=== PATIENT | male | born 1960 | race Caucasian/White ===

== ENCOUNTER 2018-05-18 08:00 | Observation (INO) | payer MEDICARE, OTHER ==
[2018-05-18] MEDS ORDERED: LACTATED RINGERS 1,000 ML IV ONE (08:14)
[2018-05-18] MEDS ORDERED: FAMOTIDINE 20 MG/2 ML VIAL ONE ×2 (08:20→08:48)
[2018-05-18] MEDS ORDERED: LEVALBUTEROL HCL 1.25 MG/3 ML VIAL.NEB IH ONE ×2 (08:20→08:48)
[2018-05-18] MEDS ORDERED: ceFAZolin SODIUM 1 GM VIAL ONE (08:48)
[2018-05-18] MEDS ORDERED: SUGAMMADEX SODIUM 200 MG/2 ML VIAL IV ONE (08:48)
[2018-05-18] MEDS ORDERED: fentaNYL CITRATE/PF 100 MCG/2 ML INJ. ONE ×2 (08:48→13:43)
[2018-05-18] MEDS ORDERED: MIDAZOLAM HCL 2 MG/2 ML VIAL ONE (08:48)
[2018-05-18] MEDS ORDERED: ROCURONIUM BROMIDE 10 MG/ML 5ML VIAL ONE (08:48)
[2018-05-18] MEDS ORDERED: DEXAMETHASONE SODIUM PHOSPHATE 10 MG/ML VIAL ONE (08:48)
[2018-05-18] MEDS ORDERED: ePHEDrine SULFATE 50 MG/1 ML IVP ONE (08:48)
[2018-05-18] MEDS ORDERED: ONDANSETRON HCL/PF 4 MG/ 2ML VIAL ONE (08:48)
[2018-05-18] MEDS ORDERED: SEVOFLURANE 250 ML LIQUID IH ONE (08:48)
[2018-05-18] MEDS ORDERED: FENTANYL CITRATE/PF 250 MCG/5 ML INJ. ONE (08:48)
[2018-05-18] MEDS ORDERED: PROPOFOL 200 MG/20 ML VIAL IV ONE (08:48)
[2018-05-18] MEDS ORDERED: LACTATED RINGERS 1,000 ML IV.SOLN IV ONE ×2 (08:48)
[2018-05-18] MEDS ORDERED: LIDOCAINE HCL 2% PF 100MG/5ML VIAL IJ ONE (08:48)
[2018-05-18] MEDS ORDERED: PHENYLEPHRINE HCL 10 MG/1 ML ONE (08:48)
[2018-05-18] MEDS ORDERED: oxyCODONE/ACETAMINOPHEN 5/325 TABLET PO PRN ×2 (14:29)
[2018-05-18] MEDS ORDERED: ONDANSETRON HCL/PF 4 MG/ 2ML VIAL IVP PRN (14:29)
[2018-05-18] MEDS ORDERED: IPRATROPIUM/ALBUTEROL SULFATE 3 ML AMPUL.NEB NEB PRN (14:29)
[2018-05-18] MEDS ORDERED: fentaNYL CITRATE/PF 100 MCG/2 ML INJ. IVP PRN (14:29)
--- NOTE | 2018-05-18 14:48 | History and Physical Report ---
History of Present Illnes - History of Present Illness Reason for Visit: Status post C3/4 and C4/5 total disc replacement History of Present Illness: This is a 58 year old male with chronic neck pain. Was noted to have severe stenosis of C4/5, 5/6 and underwent TDR at those levels today. He had failed conservative treatment. 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: CVA (Hemorrhagic stroke with resultant hemiplegia 2013) Gastrointestinal: denies: Constipation Heme/Onc: denies: Anemia NOS Rheumatologic: Gout Endocrine: obesity - Past Surgical History Past Surgical History: Other (Back surgery, pacemaker 2013) - Past Social History Smoke: 2 packs per day Alcohol: Occassional Drugs: None Lives: With Family Domestic Violence: Negative - Health Maintenance Health Maintenance: Cholesterol Influenza Vaccine: Current for this Influenza Season Pneumonia Vaccine: Yes Resuscitation Status: Resusciation Status Resuscitation Status Full Code - Unable to Obtain History Unable to Obtain: No Review of Systems - Review of Systems Constitutional: negative: Fever, Chills Eyes: negative: pain ENT: negative: Ear Pain Respiratory: negative: Cough Cardiovascular: negative: Chest Pain, Palpitations Gastrointestinal: negative: Nausea, Vomiting Genitourinary: negative: Dysuria Musculoskeletal: Neck Pain (anteriorly) Skin: negative: Rash Neurological: Other (Some sensation it returning to hands) - Medications/Allergies Allergies/Adverse Reactions: Allergies Allergy/AdvReac Type Severity Reaction Status Date / Time legumes Allergy Unknown Verified 05/18/18 15:10 erythromycin base Allergy Verified 05/18/18 14:28 [From Erythrocin] levetiracetam Allergy Verified 05/18/18 14:28 Home Medications: Home Medications Allopurinol [Zyloprim] 50 mg PO QD 05/18/18 Aspirin 325 mg PO D 05/18/18 Cyclobenzaprine HCl 10 mg PO TID 05/18/18 Garlic 1 each PO D 05/18/18 Multivitamin [One Daily Essential] 1 each PO D 05/18/18 Naproxen 500 mg PO D 05/18/18 Current Inpatient Medications: Current Inpatient Medications Albuterol/Ipratropium (Duoneb) 3 ml NEB Q4 PRN PRN Reason: Wheezing Allopurinol (Zyloprim) 50 mg PO DAILY [facility] Aspirin (Aspirin) 325 mg PO DAILY [facility] Cefazolin Sodium/Dextrose (Ancef 1 Gm/50 Ml-Dextrose) 1 gm IV Q8H [facility] Stop: 05/19/18 04:41 Cyclobenzaprine HCl (Flexeril) 10 mg PO TID [facility] Docusate Sodium (Colace) 100 mg PO BID [facility] Stop: 05/20/18 09:01 Fentanyl Citrate (Sublimaze) 100 mcg IVP Q2H PRN PRN Reason: For Severe Pain 8-10 Stop: 05/19/18 14:28 Heparin Sodium (Porcine) (Heparin) 5,000 unit SQ Q12 [facility] Multivitamins (Tab-A-Aniya) 1 each PO DAILY [facility] Naproxen (Naprosyn) 500 mg PO DAILY [facility] Nicotine (Habitrol 21mg) 1 each TD DAILY [facility] Ondansetron HCl (Zofran) 4 mg IVP Q6H PRN PRN Reason: Nausea / Vomiting Stop: 05/22/18 14:28 Oxycodone/Acetaminophen (Percocet 5-325 Mg Tablet) 1 each PO Q4 PRN PRN Reason: For pain 1-4 out of 10 Oxycodone/Acetaminophen (Percocet 5-325 Mg Tablet) 2 each PO Q4 PRN PRN Reason: Moderate pain 5-7 Exam - Exam Vital Signs: Vital Signs (72 hours) 05/18/18 14:20 Temperature 96.3 F L Pulse Rate [ 81 Pulse ox] Respiratory 20 Rate Blood Pressure 129/69 [Left Arm] O2 Sat by Pulse 94 Oximetry General: Alert, Oriented to Person, Oriented to Place, Oriented to Time HEENT: Atraumatic, PERRLA, Edentulous Neck: Other (Wound is dry). No: Normal Range of Motion Lungs: Clear to auscultation, Prolonged Expiration, Decreased Air Movement. No: Respiratory Distress Cardiovascular: Regular rate, Normal S1, Normal S2 Murmur: No: Systolic Murmur Murmur Location: [place] Abdomen: Normal bowel sounds, Soft, Other (Obese) Genitourinary: No: Other Male Genitourinary: No: Other Female Genitourinary: No: Other Integumentary: Normal, [place], Warm Extremities: No clubbing, No cyanosis Neurological: Normal speech Psych/Mental Status: Mental status NL Assessment/Plan - Assessment/Plan (1) Neural foraminal stenosis of cervical spine Status: Acute Current Visit: Yes Assessment: s/p TDR C4/5, 5/6 (2) COPD (chronic obstructive pulmonary disease) Status: Acute Current Visit: Yes Qualifiers: COPD type: unspecified COPD Qualified Code(s): J44.9 - Chronic obstructive pulmonary disease, unspecified (3) Smoker Status: Acute Current Visit: Yes Assessment: Placed patch for 21 mg of nicotine (4) History of intracranial hemorrhage Status: Acute Current Visit: Yes Assessment: Observe for any neurologic events (5) Hyperlipidemia Status: Acute Current Visit: Yes (6) CAD (coronary artery disease) Status: Acute Current Visit: Yes Qualifiers: Coronary Disease-Associated Artery/Lesion type: [place] artery Tribe vs. transplanted heart: [place] heart Associated angina: without angina Qualified Code(s): I25.10 - Atherosclerotic heart disease of [place] coronary artery without angina pectoris Assessment: Continue Aspirin daily VTE Assessment - RISK FACTOR SCORE VTE RISK FACTOR SCORES: AGE 40-60 YEARS, ANTICIPATED BED CONFINEMENT OR IMMOBILIZATION > 24 HOURS (On Heparin)
[2018-05-18] MEDS: NICOTINE 21mg 1 EACH PATCH.TD24 TD SCH (14:55)
[2018-05-18] MEDS: POTASSIUM CHLOR 20 MEQ D51/2NS 1,000 ML IV SCH (15:14)
[2018-05-18 15:34] VITALS: BMI 34.0
[2018-05-18] MEDS: CYCLOBENZAPRINE HCL 10 MG TABLET PO SCH (17:36)
[2018-05-18] MEDS: DOCUSATE SODIUM 100 MG CAPSULE PO SCH (20:23)
[2018-05-18] MEDS: HEPARIN SODIUM 5000 UNIT/1 ML SQ SCH (20:23)
[2018-05-18] MEDS: CEFAZOLIN SODIUM/DEXTROSE,ISO 1 GM/50 ML PIGGYBACK IV SCH (20:24)
[2018-05-19] MEDS: POTASSIUM CHLOR 20 MEQ D51/2NS 1,000 ML IV SCH (03:36)
[2018-05-19] MEDS: CEFAZOLIN SODIUM/DEXTROSE,ISO 1 GM/50 ML PIGGYBACK IV SCH (04:33)
[2018-05-19 07:38] LABS: BASOPHILS % 0.7 (0.0-1.5); EOSINOPHILS % 0.9 % (0.0-6.8); MEAN CORPUSCULAR HEMOGLOBIN 32.8 pg (28.0-34.0); MONOCYTES % 5.8 % (0.0-11.0); NEUTROPHILS # 11.8 # k/uL (1.4-7.7)
[2018-05-19] MEDS ORDERED: NAPROXEN 250 MG TABLET PO SCH (09:00)
[2018-05-19] MEDS ORDERED: ALLOPURINOL 100 MG TABLET PO SCH (09:00)
[2018-05-19] MEDS ORDERED: MULTIVITAMIN 1 EACH TABLET PO SCH (09:00)
[2018-05-19] MEDS ORDERED: ASPIRIN 325 MG TABLET PO SCH (09:00)
[2018-05-19] MEDS: CYCLOBENZAPRINE HCL 10 MG TABLET PO SCH (09:24)
[2018-05-19] MEDS: DOCUSATE SODIUM 100 MG CAPSULE PO SCH (09:24)
[2018-05-19] MEDS: NICOTINE 21mg 1 EACH PATCH.TD24 TD SCH (09:24)
[2018-05-19] MEDS: HEPARIN SODIUM 5000 UNIT/1 ML SQ SCH (09:25)
[2018-05-19 10:14] LABS: eGFR (Non-African) > 60
--- NOTE | 2018-05-19 10:15 | Discharge Summary ---
Discharge Summary - Discharge Sumary History of Present Illness: 58 year old male admitted to [place] for cervical TDR at C3/4 and C4/5 due to intractable radiculopathy of both arms. He had failed conservative treatment. Condition at Discharge: Stable Home Medications: Ambulatory Orders Medication Instructions Recorded Allopurinol [Zyloprim] 50 mg PO QD 05/18/18 Aspirin 325 mg PO D 05/18/18 Cyclobenzaprine HCl 10 mg PO TID 05/18/18 Garlic 1 each PO D 05/18/18 Multivitamin [One Daily Essential] 1 each PO D 05/18/18 Naproxen 500 mg PO D 05/18/18 Consultations this Visit: None Procedures this Visit: Other (C3/4, C4/5 total disc replacement) Allergies/Adverse Reactions: Allergies Allergy/AdvReac Type Severity Reaction Status Date / Time legumes Allergy Unknown Verified 05/18/ 15:10 erythromycin base Allergy Verified 05/18/18 14:28 [From Erythrocin] levetiracetam Allergy Verified 05/18/18 14:28 Patient Problems: Current Active Problems Problem Status Onset CAD (coronary artery disease) Acute COPD (chronic obstructive pulmonary disease) Acute History of intracranial hemorrhage Acute Hyperlipidemia Acute Neural foraminal stenosis of cervical spine Acute Smoker Acute Discharge Summary: Patient had C3/4, C5/6 TDR done on hospital day #1. He had no complications during this procedure. By the morning of POD#1, patient was ambulating, eating well (had eaten a full meal soon after surgery), and his pain was well controlled. Patient is very insistent on being discharged today. - Final Diagnosis (1) Neural foraminal stenosis of cervical spine Problems: s/p TDR at C3/4, 4/5 (2) COPD (chronic obstructive pulmonary disease) Problems: No complications this hospitalization (3) Smoker Problems: Was on nicotine patch in hospital, smoking cessation encouraged (4) History of intracranial hemorrhage Problems: No recurrence (5) Hyperlipidemia Problems: Chronic, currently on garlic only (6) CAD (coronary artery disease) Problems: No evidence of cardiac ischemia this hospitalization
[2018-05-19 12:16] VITALS: BP 133/69
== END 2018-05-19 12:16 | disposition home or self-care (01) ==
LOC: OPSURG 08:00 → SOUTH 14:14 → INTOOBSV 14:14
PROVIDERS: ADMIT Family Medicine; ATTEND Family Medicine
DX: M50.21 Other cervical disc displacement, high cervical region (principal); M50.221 Other cervical disc displacement at C4-C5 level; M48.02 Spinal stenosis, cervical region; E78.5 Hyperlipidemia, unspecified; I25.10 Atherosclerotic heart disease of native coronary artery without angina pectoris; F17.210 Nicotine dependence, cigarettes, uncomplicated; Z86.79 Personal history of other diseases of the circulatory system
CPT/HCPCS: 22856; 22858; 80048; 85025; 97161; A9270; G0378; J0690; J1644; J2001; J2250; J2370; J2405; J2704; J3010; J7070; J7120; J7614; S0028; 99217; 99224; J2307; C1889